=== PATIENT | female | born 1985 | race Hispanic/Latino ===

== ENCOUNTER 2018-03-20 12:26 | Emergency (ER) | payer BC ==
[~2018-03-20] VITALS: Ht 154.9 cm; Wt 53.1 kg
[2018-03-20] MEDS ORDERED: ACETAMINOPHEN/CODEINE ELIX 120-12 MG/5 ML UDC NG ONE (12:45)
[2018-03-20] MEDS ORDERED: FAMOTIDINE 20 MG/2 ML VIAL IV SCH (12:45)
[2018-03-20] MEDS ORDERED: DIPHENHYDRAMINE HCL INJ 50 MG/ML VIAL IV PRN (12:45)
[2018-03-20] MEDS ORDERED: METHYLPREDNISOLONE SOD SUCC 125 MG/2ML VIAL IV ONE (12:45)
[2018-03-20] MEDS ORDERED: SODIUM CHLORIDE 0.9% 1000ML 1,000 ML IV SCH (12:45)
--- NOTE | 2018-03-20 13:06 | Diagnostic Imaging Report ---
EXAMINATION: PA and lateral views of the chest. COMPARISON: None CLINICAL HISTORY: Sudden onset shortness of breath DISCUSSION: The lungs are well-inflated. No focal airspace consolidation, pleural effusion, or pneumothorax. Cardiomediastinal contour and pulmonary vasculature are within normal limits. No acute osseous abnormality. IMPRESSION: No acute cardiopulmonary abnormalities. Signed by: Dr. Jarvis Bird M.D. on 03/20/2018 1:03 PM
== END 2018-03-20 13:15 | disposition home or self-care (01) ==
LOC: FSED 12:26
DX: R06.00 Dyspnea, unspecified (principal); T78.40XA Allergy, unspecified, initial encounter
CPT/HCPCS: 71046; 80053; 85025; 99284; J2930